=== PATIENT | male | born 1950 | race Asian ===

== ENCOUNTER 2025-03-08 05:39 | Day surgery (SDC) | payer OTHER ==
[2025-03-04 12:36] VITALS: BMI 25.8
[2025-03-08] MEDS ORDERED: KETOROLAC TROMETHAMINE 30 MG/1 ML VIAL ONE (14:23)
[2025-03-08] MEDS ORDERED: ONDANSETRON 4 MG/2 ML VIAL ONE (14:23)
[2025-03-08] MEDS ORDERED: DEXAMETHASONE SOD PHOSPHATE 4 MG/1 ML VIAL ONE (14:23)
[2025-03-08] MEDS ORDERED: PROPOFOL 20 ML ONE (14:23)
[2025-03-08] MEDS ORDERED: LIDOCAINE HCL 2% JELLY 11 ML TP ONE (14:47)
[2025-03-08 15:55] VITALS: RESP 18; TEMP 97
[2025-03-08 16:10] VITALS: BP 143/84; PULSE 63
== END 2025-03-08 16:27 | disposition home or self-care (01) ==
LOC: JASU-SURG 05:39
PROVIDERS: ATTEND Urology
PROC: 0TBB8ZX Excision of Bladder, Via Natural or Artificial Opening Endoscopic, Diagnostic (ICD-10-PCS; principal; 2025-03-08 12:00)
DX: N30.80 Other cystitis without hematuria (principal)
CPT/HCPCS: 88305-TC